=== PATIENT | male | born 1935 | race African-American/Black ===

== ENCOUNTER 2021-08-14 17:35 | Inpatient (IN) | payer OTHER ==
[~2021-08-14] VITALS: Ht 182.9 cm; Wt 67.1 kg
[2021-08-14] MEDS ORDERED: LEVETIRACETAM 1000MG PREMIX 100 ML IV ONE (17:45)
[2021-08-14 18:04] LABS: BASOPHILS % 1.1 % (0.0-2.0); EOSINOPHILS % 5.1 % (0.0-5.0); HEMATOCRIT. 39.9 % (42.0-52.0); HEMOGLOBIN. 12.7 g/dL (14.0-18.0); LYMPHOCYTES % 29.3 % (20.0-50.0); MEAN CORPUSCULAR HEMOGLOBIN 33.7 pg (28.0-32.0); MEAN CORPUSCULAR VOLUME 105.5 fL (80.0-94.0); MEAN PLATELET VOLUME 9.4 fl (7.4-10.4); MONOCYTES % 7.9 % (2.0-8.0); NEUTROPHILS % 56.6 % (40.0-76.0); PLATELET 199 x1000/uL (130-400); RED BLOOD CELL COUNT 3.78 mill/uL (4.7-6.1); RED CELL DISTRIBUTION WIDTH 14.6 % (11.6-14.6)
[2021-08-14 18:10] LABS: CHLORIDE 104 mEq/L (98-107)
[2021-08-14 18:15] LABS: ETHANOL BLOOD < 10 mg/dL
[2021-08-14 21:11] LABS: CLARITY URINE CLEAR (CLEAR); COLOR URINE YELLOW (YELLOW); KETONES URINE TRACE (NEGATIVE); LEUKOCYTE ESTERASE URINE NEGATIVE (NEGATIVE); NITRITE URINE NEGATIVE (NEGATIVE); OCCULT BLOOD URINE NEGATIVE (NEGATIVE); PROTEIN URINE TRACE (NEGATIVE); SPECIFIC GRAVITY URINE 1.017 (1.005-1.030); UROBILINOGEN URINE 0.2 E.U./dL (0.2-1.0)
[2021-08-14 21:24] LABS: *AMPHETAMINES SCREEN URINE NEGATIVE (NEGATIVE); *BARBITURATES SCREEN URINE NEGATIVE (NEGATIVE)
[2021-08-14 21:25] LABS: *BENZODIAZEPINES SCREEN URINE PRESUMTIVE POSITIVE (NEGATIVE); *COCAINE SCREEN URINE NEGATIVE (NEGATIVE); CANNABINOID URINE SCREEN NEGATIVE (NEGATIVE); METHADONE URINE SCREEN NEGATIVE (NEGATIVE); OPIATES URINE SCREEN PRESUMTIVE POSITIVE (NEGATIVE); PHENCYCLIDINE URINE SCREEN NEGATIVE (NEGATIVE)
[2021-08-14] MEDS ORDERED: HYDROCODONE/ACETAMINOPHEN 5/325MG TABLET PO PRN (22:30)
[2021-08-15] MEDS ORDERED: GUAIFENESIN 200MG/10ML SUGAR FREE UDC PO PRN (03:45)
[2021-08-15] MEDS ORDERED: ONDANSETRON HCL 4MG/2ML INJ IV PRN (03:45)
[2021-08-15] MEDS ORDERED: ACETAMINOPHEN 325MG TABLET PO PRN (03:45)
[2021-08-15] MEDS ORDERED: NA PHOS,M-B/NA PHOS,DI-BA ENEMA 118ML PR PRN (03:45)
[2021-08-15] MEDS ORDERED: HYDROCODONE/ACETAMINOPHEN 5/325MG TABLET PO PRN (03:45)
[2021-08-15] MEDS ORDERED: LORAZEPAM 2MG/ML CPJ IV PRN (03:45)
[2021-08-15] MEDS: SODIUM CHLORIDE 0.45% 1,000 ML IV SCH ×2 (03:45→20:55)
[2021-08-15] MEDS ORDERED: MAGNESIUM/ALUMINUM HYDROXIDE/SIMETHICONE 30ML UDC PO PRN (03:45)
[2021-08-15] MEDS ORDERED: DOCUSATE SODIUM 100MG CAPSULE PO PRN (03:45)
[2021-08-15] MEDS ORDERED: CLONIDINE 0.1MG TABLET PO PRN (03:45)
[2021-08-15] MEDS ORDERED: NALOXONE HCL 0.4 MG/ML 1ML VIAL IV PRN (04:30)
[2021-08-15] MEDS: AMLODIPINE 10MG TABLET PO SCH (08:28)
[2021-08-15] MEDS: ASPIRIN 81MG EC TABLET PO SCH (08:28)
[2021-08-15] MEDS: ENOXAPARIN 40MG/0.4ML SYR SUBCUT SCH (08:28)
[2021-08-15] MEDS: LEVETIRACETAM 500MG TABLET PO SCH ×2 (09:18→21:31)
[2021-08-15] MEDS ORDERED: HYDROCODONE/ACETAMINOPHEN 10/325MG TABLET PO PRN (12:30)
[2021-08-15] MEDS ORDERED: METF-874 MT (14:45)
[2021-08-15] MEDS ORDERED: LISI-186 MT (14:45)
[2021-08-15] MEDS ORDERED: OXYC1TAB12 MT (14:45)
[2021-08-15] MEDS ORDERED: SITA100T11 MT (14:45)
[2021-08-15] MEDS ORDERED: ZOLP10TA2 MT (14:45)
[2021-08-15] MEDS ORDERED: TAP5 MT (14:45)
[2021-08-15 16:00] VITALS: BP 117/63
[2021-08-15 17:58] VITALS: BP 131/75
[2021-08-15 20:00] VITALS: BP 106/75
[2021-08-15] MEDS ORDERED: DEXTROSE 50% WATER 50ML SYRINGE IV PRN (20:45)
[2021-08-15] MEDS: BLOOD SUGAR DIAGNOSTIC STRIP TEST SCH (21:15)
[2021-08-15] MEDS: INSULIN LISPRO 100 UNITS/ML SUBCUT SCH (21:31)
[2021-08-16] VITALS: BP 146/66
[2021-08-16 04:00] VITALS: BP 149/65
[2021-08-16] MEDS: BLOOD SUGAR DIAGNOSTIC STRIP TEST SCH ×2 (06:34→11:42)
[2021-08-16] MEDS: INSULIN LISPRO 100 UNITS/ML SUBCUT SCH ×2 (06:34→11:48)
[2021-08-16 07:30] LABS: BASOPHILS % 0.8 % (0.0-2.0); EOSINOPHILS % 2.9 % (0.0-5.0); HEMATOCRIT. 39.8 % (42.0-52.0); HEMOGLOBIN. 13.4 g/dL (14.0-18.0); LYMPHOCYTES % 22.7 % (20.0-50.0); MEAN CORPUSCULAR HEMOGLOBIN 34.3 pg (28.0-32.0); MONOCYTES % 11.3 % (2.0-8.0); NEUTROPHILS % 62.3 % (40.0-76.0); PLATELET 161 x1000/uL (130-400); RED CELL DISTRIBUTION WIDTH 13.9 % (11.6-14.6)
[2021-08-16 07:37] VITALS: BP 152/86
[2021-08-16 07:47] LABS: CHLORIDE 108 mEq/L (98-107)
[2021-08-16 08:03] LABS: LDL CHOLESTEROL 68 mg/dL (5-100)
[2021-08-16 08:04] LABS: HDL CHOLESTEROL 54 mg/dL (40-59)
[2021-08-16] MEDS: LEVETIRACETAM 500MG TABLET PO SCH (08:19)
[2021-08-16] MEDS: ASPIRIN 81MG EC TABLET PO SCH (08:20)
[2021-08-16] MEDS: AMLODIPINE 10MG TABLET PO SCH (08:20)
[2021-08-16] MEDS: ENOXAPARIN 40MG/0.4ML SYR SUBCUT SCH (08:20)
[2021-08-16] MEDS ORDERED: OXYCODONE HCL/ACETAMINOPHEN 5/325MG TABLET PO PRN (11:00)
[2021-08-16 12:00] VITALS: BP 119/61
[2021-08-16 15:42] VITALS: BP 119/70
[2021-08-16] MEDS ORDERED: KEPP500 MT (16:03)
[2021-08-16 16:04] VITALS: BP 119/70
== END 2021-08-16 17:15 | disposition home or self-care (01) | DRG 101 ==
LOC: ER 17:35 → MICUSO 08-15 00:34 → 7EST 08-15 14:57
PROVIDERS: ADMIT Hospitalist; ATTEND Hospitalist
DX: G40.409 Other generalized epilepsy and epileptic syndromes, not intractable, without status epilepticus (principal); F03.90 Unspecified dementia, unspecified severity, without behavioral disturbance, psychotic disturbance, mood disturbance, and anxiety; E07.9 Disorder of thyroid, unspecified; E11.9 Type 2 diabetes mellitus without complications; I10 Essential (primary) hypertension; G31.9 Degenerative disease of nervous system, unspecified; F17.200 Nicotine dependence, unspecified, uncomplicated; Z96.653 Presence of artificial knee joint, bilateral; Z82.49 Family history of ischemic heart disease and other diseases of the circulatory system; W18.30XA Fall on same level, unspecified, initial encounter
CPT/HCPCS: 36415; 71045; 80053; 80061; 80305; 80320; 81003; 82962; 83036; 83605; 84484; 85025; 86850; 86900; 93005; 93970; 97161; 99285; J1650; J1815; J1953; J2060; A4315; G0480